=== PATIENT | female | born 1955 | race Caucasian/White ===

== ENCOUNTER 2019-08-27 06:00 | Outpatient (RCR) | payer OTHER, MEDICAID, SELFPAY | END 2019-09-26 00:01 | LOC: SPT 06:00 | PROVIDERS: Family Provider Internal Medicine; Visit Provider Internal Medicine | DX: M54.5 Low back pain (principal); R29.898 Other symptoms and signs involving the musculoskeletal system | CPT/HCPCS: 97110 ×9 ==

== ENCOUNTER 2019-09-27 08:31 | Outpatient (RCR) | payer OTHER, MEDICAID, SELFPAY | END 2019-10-02 23:00 | disposition home or self-care (01) | LOC: SPT 08:31 | PROVIDERS: Family Provider Internal Medicine; PCP Internal Medicine; Visit Provider Internal Medicine | DX: M54.5 Low back pain (principal); R29.898 Other symptoms and signs involving the musculoskeletal system | CPT/HCPCS: 97110 ==

== ENCOUNTER 2020-03-13 10:01 | Outpatient (CLI) | payer OTHER, MEDICAID, SELFPAY ==
[2020-03-13 10:43] LABS: Basophils % 0.8 %; Eosinophils # 0.1 10^3/uL (0.0-0.8); Eosinophils % 1.8 %; Hematocrit 40.7 % (37.0-47.0); Hemoglobin 13.7 g/dL (11.5-15.3); Lymphocytes # 1.2 10^3/uL (0.8-4.8); Lymphocytes % 30.3 %; Mean Corpuscular HGB Conc 33.7 g/dL (30.0-36.0); Mean Corpuscular Hemoglobin 32.9 pg (28.0-34.0); Mean Corpuscular Volume 97.6 fL (81-99); Mean Platelet Volume 10.8 fL (7.4-10.4); Monocytes # 0.3 10^3/uL (0.2-0.9); Monocytes % 7.4 %; Neutrophils # 2.3 10^3/uL (1.8-7.7); Neutrophils % 59.4 %; Nucleated Red Blood Cells % 0 %; Platelet Count 221 10^3/cmm (130-400); Red Blood Count 4.17 10^6/uL (4.1-5.3); Red Cell Distribution Width 11.7 % (12.1-15.1); White Blood Count 3.8 10^3/uL (4.0-10.0)
[2020-03-13 11:05] LABS: Carcinoembryonic Antigen 3.3 ng/mL (0.0-4.7)
[2020-03-13 11:13] LABS: Slide Review Slide Review Perform
[2020-03-13 11:16] LABS: Alanine Aminotransferase 15 U/L (0-33); Albumin Level 3.9 g/dL (3.5-5.2); Alkaline Phosphatase 81 IU/L (35-105); Anion Gap 15.3 (5-19); Blood Urea Nitrogen 10 mg/dL (8-23); Calcium 9.2 mg/dL (8.5-10.5); Carbon Dioxide 24 mmol/L (22-29); Chloride 102 mmol/L (98-107); Glomerular Filtration Rate 84.8 mL/min (90-130); Glucose 100 mg/dL (65-115); Osmolality Calculated 280 mOsm/kg (285-295); Potassium 4.3 mmol/L (3.5-5.1); Sodium 137 mmol/L (136-145); Total Bilirubin 0.6 mg/dL (0.15-1.2); Total Protein 6.9 g/dL (6.6-8.7)
[2020-03-13 11:30] LABS: Aspartate Amino Transferase 28 U/L (0-32)
--- NOTE | 2020-03-17 13:51 | ONC FU_ITS ---
Dr. Navarrete Patient Follow-Up Note Patient: Delisa Dos Santos Unit #: [id number]: 1955 Dicatated By: Rodriguez Navarrete M.D.Date of Visit:Mar 13, 2020 Onc Med Follow-up/Prog Note Chief Complaint: Colon cancer. History of Present Illness: This is a 64 year-old woman with low-grade invasive adenocarcinoma of the cecum, stage IIIC (T3, N2b, M0). She underwent right hemicolectomy in April of 2011. Pathology showed a T3 primary tumor with involvement in 9 of [address] scan at that time showed a lesion in the left lobe of the liver which was felt to be suspicious for possible metastasis, but that lesion did not show up on a PET/CT scan. She was given adjuvant chemotherapy with modified FOLFOX. As of October 2011 she had completed 4 biweekly cycles of treatment. Treatment was stopped at that point because of neurotoxicity with the oxaliplatin, which persisted even with dose reductions. She has remained on observation since then. On her surveillance CT scans the abnormality in the medial segment of the left lobe of the liver was felt to be consistent with a benign focal area of decreased enhancement. During subsequent follow-up she continued to have some neuropathy symptoms, but there was no evidence of recurrence of the colon cancer. Her other medical illnesses include hyperlipidemia and migraine headaches. She has degenerative disease of the spine with chronic back pain. She has had significant visual loss due to glaucoma. Her surveillance colonoscopy in March 2016 showed adenomatous appearing polyps in the mid and distal sigmoid colon, both removed endoscopically. Pathology on the mid sigmoid lesion show tubular adenoma. The distal sigmoid lesion was a hyperplastic polyp. She has a nonsmoker. She is seen for a scheduled visit. She has been feeling okay. Her energy is fair. ECOG score is 1. She says her appetite is not that good. Her weight is down about 5 pounds. She does not have fever. She does have hot flashes and sweating. Her main complaint is that her right shoulder is been hurting for couple of weeks, enough that she has difficulty lifting her arm. She did get an injection, which has not helped very much. She does not complain of shortness of breath, cough, or chest pain. She has no GI or complaints. She also has back pain, which is chronic. She has been having some headaches for the past 3 to 4 weeks. She continues to have neuropathy pain in her hands and in her legs and feet. Medications: Aspirin 1 (81 mg) Tablet Oral daily, Ativan 1 (1 mg) Tablet Oral 6x/d PRN, B-6 1 (100 mg) Tablet Oral daily, Flexeril 1 (10 mg) Tablet Oral daily, Lomotil Tablet Oral PRN, Multivitamins 1 Capsule Oral daily, Nucynta 1 (50 mg) Tablet Oral four times a day PRN, Pravastatin Sodium 1 (20 mg) Tablet Oral at bedtime, Prochlorperazine Maleate 1 (10 mg) Tablet Oral 6x/d PRN, Soma 250 (250 mg) Tablet Oral t.i.d. PRN, SUMAtriptan Succinate 1 (100 mg) Tablet Oral four times a day PRN, Vitamin D 1 (400 Units) Capsule Oral b.i.d., Zolpidem Tartrate 1 (5 mg) Tablet Oral at bedtime PRN, ZyrTEC Allergy 1 (10 mg) Capsule Oral daily Allergies: No Known Allergies. Review of Systems: Constitutional - Her energy is fair. She is able to do light house work. Her appetite is okay and her weight is down about 6 pounds from last visit. No fevers. She continues to have hot flashes and night sweats. ECOG score is 1, ENMT - No sinus congestion/drainage. No mouth sores. No sore throat or difficulty swallowing, Hematologic/Lymphatic - She bruises easily, Respiratory - No shortness of breath. No cough. No pleuritic pain or hemoptysis, Cardiovascular - No angina pain. No palpitations, Gastrointestinal - No nausea or vomiting. No heartburn or acid reflux. No diarrhea or constipation. No blood in the stool or black stools, Genitourinary (F) - No dysuria or hematuria. No urinary frequency. No urgency or incontinence, Musculoskeletal - She is having right shoulder pain, Integumentary - No skin complications, Neurologic - She is having headaches, this is occuring every 3-4 weeks.No dizziness. She has some mild neuropathy in her hands and feet. No other focal neurologic symptoms, Psychiatric - No anxiety or depression. She does not sleep well. Vital Signs: Performed on Mar 13, 2020 11:35 Height - 62.00 in Weight - 133.8 lbs (LOW) BSA - 1.61 sq.m BMI - 24.47 Temperature - 98.2 F (LOW) Pulse - 87 /min Respiration - 18 /min BP - 111/63 mm(hg) O2 Sat - 99 % Pain - 5 Physical Examination: Constitutional - She looks good generally, Eyes - Sclerae nonicteric. Conjunctivae clear, ENMT - No lesions noted in the oral cavity, Hematologic/Lymphatic - No cervical, clavicular, or axillary adenopathy, Respiratory - Lungs are clear with good air movement bilaterally, Cardiovascular - Heart rhythm is regular. There is no murmur, gallop, or rub noted, Abdomen - Soft. Liver and spleen are not enlarged. There is no abdominal mass or ascites noted and there is no inguinal adenopathy, Extremities - No edema, Neurologic - No focal neurologic deficits noted. Lab/Imaging: Test performed on Mar 13, 2020 10:14 Sodium 137 mmol/L Potassium 4.3 mmol/L Chloride 102 mmol/L CO2 24 mmol/L Anion Gap 15.3 BUN 10 mg/dL Creatinine 0.7 mg/dL Cr Clearance (Est) 79.84 mL/min eGFR 84.8 mL/min Glucose 100 mg/dL Calcium 9.2 mg/dL Protein, Total 6.9 g/dL Albumin 3.9 g/dL Globulin 3.0 g/dL Bilirubin, Total 0.6 mg/dL ALT (SGPT) 15 U/L AST (SGOT) 28 U/L Alkaline Phosphatase 81 IU/L WBC 3.8 10 3/uL RBC 4.17 10 6/uL HGB 13.7 g/dL HCT 40.7 % MCV 97.6 fL MCH 32.9 pg MCHC 33.7 g/dL RDW 11.7 % Platelet Count 221 10 3/cmm MPV 10.8 fL Neutrophils 2.3 10 3/uL Lymphocytes 1.2 10 3/uL Monocytes 0.3 10 3/uL Eosinophils 0.1 10 3/uL Basophils 0.0 10 3/uL Neutrophil % 59.4 % Lymphocyte % 30.3 % Monocyte % 7.4 % Eosinophil % 1.8 % Basophils % 0.8 % NRBC % 0 % CBC Slide Review Slide Review Perform CEA 3.3 ng/mL Impression: 1. Patient with low-grade invasive adenocarcinoma of the cecum, stage IIIC. She underwent right hemicolectomy in April 2011 2. She was given adjuvant chemotherapy with 8 cycles of modified FOLFOX, completed in October 2011. Treatment was stopped at that point due to neurotoxicity. 3. She has since then remained on observation/expectant management. She had some chronic fatigue following the chemotherapy and she also had persistent chemotherapy-related neuropathy symptoms, including chronic neuropathic pain. She also has had some chronic back pain. Her pain has been managed adequately with Nucynta, which she has tolerated well. Recently she has had some new pain in her right shoulder. The symptoms appear consistent with bursitis or capsulitis, though she had no symptomatic improvement with the recent injection. She otherwise appears stable clinically. Thus far there has been no evidence of recurrence of the colon cancer. Plan: She remains on observationexpectant management for the colon cancer. She will continue Nucynta for her neuropathy pain. I will see her again in one year. She will be due for surveillance colonoscopy in 2020. Signed By: Rodriguez Navarrete M.D. <<Signature on File>>
== END 2020-03-13 10:02 | disposition home or self-care (01) ==
LOC: ONCMED 10:04
PROVIDERS: PCP Internal Medicine; Visit Provider Internal Medicine Medical Oncology
DX: Z08 Encounter for follow-up examination after completed treatment for malignant neoplasm (principal); Z85.038 Personal history of other malignant neoplasm of large intestine; G62.0 Drug-induced polyneuropathy; T45.1X5D Adverse effect of antineoplastic and immunosuppressive drugs, subsequent encounter; M25.511 Pain in right shoulder; Z90.49 Acquired absence of other specified parts of digestive tract; Z92.21 Personal history of antineoplastic chemotherapy
CPT/HCPCS: 36415; 80053; 82378; 85025; G0463

== ENCOUNTER 2020-07-02 08:22 | Outpatient (RCR) | payer OTHER, MEDICAID, SELFPAY | END 2020-07-27 23:59 | disposition home or self-care (01) | LOC: SPT 08:22 | PROVIDERS: PCP Internal Medicine; Referring Provider Orthopaedic Surgery; Visit Provider Orthopaedic Surgery | DX: Z47.89 Encounter for other orthopedic aftercare (principal) | CPT/HCPCS: 97110; 97161 ==

== ENCOUNTER 2020-07-12 08:52 | Outpatient (CLI) | payer OTHER, MEDICAID, SELFPAY ==
--- NOTE | 2020-07-12 08:57 | MM_ITS ---
WS: [id number] Bilateral screening digital mammogram, 07/12/2020 Clinical Data: SCREENING Comparison: 07/10/2019, 07/01/2018, 05/10/2017, 04/13/2016, 04/09/2015, 04/03/2014. Findings: The breast parenchymal pattern shows fibroglandular tissue No spiculated masses or clustered calcific ations are seen. There are no secondary signs of carcinoma. MM/[place] [id number] Impression: 1. Negative bilateral mammogram unchanged. 2. Recommend annual screening mammograms. BIRADS: 1-Negative FOLLOW UP: 1 Year Follow-up The CAD loom checker was used.
== END 2020-07-12 08:53 | disposition home or self-care (01) ==
PROVIDERS: PCP Internal Medicine; Visit Provider Internal Medicine Medical Oncology
DX: Z12.31 Encounter for screening mammogram for malignant neoplasm of breast (principal)
CPT/HCPCS: 77067

== ENCOUNTER 2020-07-28 06:00 | Outpatient (RCR) | payer OTHER, MEDICAID, SELFPAY | END 2020-08-26 23:59 | disposition home or self-care (01) | LOC: SPT 06:00 | PROVIDERS: PCP Internal Medicine; Visit Provider Orthopaedic Surgery | DX: Z47.89 Encounter for other orthopedic aftercare (principal) | CPT/HCPCS: 97110 ==

== ENCOUNTER 2020-08-27 06:00 | Outpatient (RCR) | payer OTHER, MEDICAID, SELFPAY | END 2020-09-26 23:59 | disposition home or self-care (01) | LOC: SPT 06:00 | PROVIDERS: PCP Internal Medicine; Visit Provider Orthopaedic Surgery | DX: Z47.89 Encounter for other orthopedic aftercare (principal) | CPT/HCPCS: 97110 ==

== ENCOUNTER → 2020-12-02 11:09 | Outpatient (BNVA) | payer OTHER, MEDICAID, SELFPAY | PROVIDERS: PCP Internal Medicine; Visit Provider Obstetrics & Gynecology | DX: Z12.4 Encounter for screening for malignant neoplasm of cervix (principal) | CPT/HCPCS: 88175 ==

== ENCOUNTER 2021-03-13 08:59 | Outpatient (CLI) | payer OTHER, MEDICAID, SELFPAY ==
[2021-03-13 09:49] LABS: Basophils % 0.9 %; Eosinophils # 0.1 10^3/uL (0.0-0.8); Hematocrit 39.4 % (37.0-47.0); Hemoglobin 13.2 g/dL (11.5-15.3); Lymphocytes # 2.1 10^3/uL (0.8-4.8); Lymphocytes % 46.8 %; Mean Corpuscular HGB Conc 33.5 g/dL (30.0-36.0); Mean Corpuscular Hemoglobin 32.7 pg (28.0-34.0); Mean Corpuscular Volume 97.5 fL (81-99); Mean Platelet Volume 9.7 fL (7.4-10.4); Monocytes # 0.5 10^3/uL (0.2-0.9); Monocytes % 10.8 %; Neutrophils # 1.75 10^3/uL (1.8-7.7); Neutrophils % 39.5 %; Nucleated Red Blood Cells % 0 %; Platelet Count 253 10^3/cmm (130-400); Red Blood Count 4.04 10^6/uL (4.1-5.3); Red Cell Distribution Width 11.8 % (12.1-15.1); White Blood Count 4.4 10^3/uL (4.0-10.0)
[2021-03-13 10:23] LABS: Carcinoembryonic Antigen 3.1 ng/mL (0.0-4.7)
[2021-03-13 10:34] LABS: Alanine Aminotransferase 12 U/L (0-33); Albumin Level 3.8 g/dL (3.5-5.2); Alkaline Phosphatase 95 IU/L (35-105); Aspartate Amino Transferase 22 U/L (0-32); Blood Urea Nitrogen 12 mg/dL (8-23); Calcium 8.6 mg/dL (8.5-10.5); Carbon Dioxide 26 mmol/L (22-29); Chloride 103 mmol/L (98-107); Globulin 2.6 g/dL (1.3-4.6); Glomerular Filtration Rate 72.4 mL/min (90-130); Glucose 90 mg/dL (65-115); Osmolality Calculated 283 mOsm/kg (285-295); Sodium 137 mmol/L (136-145); Total Bilirubin 0.5 mg/dL (0.15-1.2); Total Protein 6.4 g/dL (6.6-8.7)
--- NOTE | 2021-03-16 14:59 | ONC FU_ITS ---
Dr. Navarrete Patient Follow-Up Note Patient: Delisa Dos Santos Unit #: [id number]: 1955 Dicatated By: Rodriguez Navarrete M.D.Date of Visit:Mar 13, 2021 Onc Med Follow-up/Prog Note Chief Complaint: Colon cancer. History of Present Illness: This is a 65 year-old woman with low-grade invasive adenocarcinoma of the cecum, stage IIIC (T3, N2b, M0). She underwent right hemicolectomy in April of 2011. Pathology showed a T3 primary tumor with involvement in 9 of [address] scan at that time showed a lesion in the left lobe of the liver which was felt to be suspicious for possible metastasis, but that lesion did not show up on a PET/CT scan. She was given adjuvant chemotherapy with modified FOLFOX. As of October 2011 she had completed 4 biweekly cycles of treatment. Treatment was stopped at that point because of neurotoxicity with the oxaliplatin, which persisted even with dose reductions. She has remained on observation since then. On her surveillance CT scans the abnormality in the medial segment of the left lobe of the liver was felt to be consistent with a benign focal area of decreased enhancement. During subsequent follow-up she continued to have some neuropathy symptoms, but there was no evidence of recurrence of the colon cancer. Her other medical illnesses include hyperlipidemia and migraine headaches. She has degenerative disease of the spine with chronic back pain. She has had significant visual loss due to glaucoma. Her surveillance colonoscopy in March 2016 showed adenomatous appearing polyps in the mid and distal sigmoid colon, both removed endoscopically. Pathology on the mid sigmoid lesion show tubular adenoma. The distal sigmoid lesion was a hyperplastic polyp. She has a nonsmoker. She is seen for a scheduled visit. She has been feeling pretty good generally. Her energy level is somewhat variable, but she has normal activity. ECOG score is 0. She does not have much appetite, but her weight is stable. She has not had fever. She does have hot flashes and sweating at night. She does not complain of shortness of breath, cough, or chest pain. She has no GI/ complaints other than some mild constipation. She has a little stiffness in her joints and she continues to have back pain, though it is adequately managed with her medication. Her headaches have slacked up. She still has neuropathy pain in her hands and feet. Medications: Aspirin 1 (81 mg) Tablet Oral daily, Ativan 1 (1 mg) Tablet Oral 6x/d PRN, B-6 1 (100 mg) Tablet Oral daily, Flexeril 1 (10 mg) Tablet Oral daily, Lomotil Tablet Oral PRN, Multivitamins 1 Capsule Oral daily, Nucynta 1 (50 mg) Tablet Oral four times a day PRN, Pravastatin Sodium 1 (20 mg) Tablet Oral at bedtime, Prochlorperazine Maleate 1 (10 mg) Tablet Oral 6x/d PRN, Soma 250 (250 mg) Tablet Oral t.i.d. PRN, SUMAtriptan Succinate 1 (100 mg) Tablet Oral four times a day PRN, Vitamin D 1 (400 Units) Capsule Oral b.i.d., Zolpidem Tartrate 1 (5 mg) Tablet Oral at bedtime PRN, ZyrTEC Allergy 1 (10 mg) Capsule Oral daily Allergies: No Known Allergies. Vital Signs: Performed on Mar 13, 2021 11:59 Height - 62.00 in Weight - 133.8 lbs BSA - 1.61 sq.m BMI - 24.47 Temperature - 97.1 F (LOW) Pulse - 89 /min Respiration - 18 /min BP - 114/75 mm(hg) O2 Sat - 97 % Pain - 0 Fatigue - 0 Physical Examination: Constitutional - She looks good generally, Eyes - Sclerae nonicteric. Conjunctivae clear, ENMT - No lesions noted in the oral cavity, Hematologic/Lymphatic - No cervical, clavicular, or axillary adenopathy, Respiratory - Lungs are clear with good air movement bilaterally, Cardiovascular - Heart rhythm is regular. There is no murmur, gallop, or rub noted, Abdomen - Soft. Liver and spleen are not enlarged. There is no abdominal mass or ascites noted and there is no inguinal adenopathy, Extremities - No edema, Neurologic - No focal neurologic deficits noted. Lab/Imaging: Test performed on Mar 13, 2021 09:23 Sodium 137 mmol/L Potassium 4.0 mmol/L Chloride 103 mmol/L CO2 26 mmol/L Anion Gap 12.0 BUN 12 mg/dL Creatinine 0.8 mg/dL Cr Clearance (Est) 68.9600 mL/min eGFR 72.4 mL/min Glucose 90 mg/dL Osmolality - Calculated 283 mOsm/kg Calcium 8.6 mg/dL Protein, Total 6.4 g/dL Albumin 3.8 g/dL Globulin 2.6 g/dL Bilirubin, Total 0.5 mg/dL ALT (SGPT) 12 U/L AST (SGOT) 22 U/L Alkaline Phosphatase 95 IU/L WBC 4.4 10 3/uL RBC 4.04 10 6/uL HGB 13.2 g/dL HCT 39.4 % MCV 97.5 fL MCH 32.7 pg MCHC 33.5 g/dL RDW 11.8 % Platelet Count 253 10 3/cmm MPV 9.7 fL Neutrophils 1.75 10 3/uL Lymphocytes 2.1 10 3/uL Monocytes 0.5 10 3/uL Eosinophils 0.1 10 3/uL Basophils 0.0 10 3/uL Neutrophil % 39.5 % Lymphocyte % 46.8 % Monocyte % 10.8 % Eosinophil % 2.0 % Basophils % 0.9 % NRBC % 0 % CEA 3.1 ng/mL Problem List: 1. Low-grade invasive adenocarcinoma of the cecum, stage IIIC. She underwent right hemicolectomy in April 2011. 2. She had some chronic fatigue following adjuvant chemotherapy, and she also had persistent chemotherapy-related neuropathy symptoms, including chronic neuropathic pain. 3. Degenerative disease of the spine with chronic back pain. Problems Addressed with this Encounter and Plan: 1. Patient with low-grade invasive adenocarcinoma of the cecum, stage IIIC. She underwent right hemicolectomy in April 2011. She was given adjuvant chemotherapy with 8 cycles of modified FOLFOX, completed in October 2011. Treatment was stopped at that point due to neurotoxicity. She was then followed expectantly. During follow-up her overall clinical status has remained stable. Thus far there has been no evidence of recurrence of the colon cancer. Her most recent surveillance colonoscopy was in March 2016, and that is due to be repeated. I will have that scheduled with Dr. Joshi. As she is close to 10 years out from her surgery, she will now continue her regular follow-up with Dr. Srinivasan, and I will plan to see her again only as needed. 2. She has degenerative disease of the spine with some chronic back pain and she also has had chronic fatigue and neuropathy pain following her adjuvant chemotherapy. The pain has been managed adequately with Nucynta 50 mg 4 times daily. Signed By: Rodriguez Navarrete M.D. <<Signature on File>>
== END 2021-03-13 09:00 | disposition home or self-care (01) ==
LOC: ONCMED 09:03
PROVIDERS: PCP Internal Medicine; Visit Provider Internal Medicine Medical Oncology
DX: Z08 Encounter for follow-up examination after completed treatment for malignant neoplasm (principal); Z85.038 Personal history of other malignant neoplasm of large intestine; R53.82 Chronic fatigue, unspecified; G62.0 Drug-induced polyneuropathy; T45.1X5A Adverse effect of antineoplastic and immunosuppressive drugs, initial encounter; M19.90 Unspecified osteoarthritis, unspecified site; M54.5 Low back pain; G89.29 Other chronic pain; Z79.899 Other long term (current) drug therapy; Z92.21 Personal history of antineoplastic chemotherapy
CPT/HCPCS: 80053; 82378; 85025; 99214

== ENCOUNTER 2021-09-12 10:46 | Outpatient (CLI) | payer OTHER, MEDICAID, SELFPAY ==
--- NOTE | 2021-09-12 10:59 | MM_ITS ---
WS: [id number] SCREENING DIGITAL MAMMOGRAM WITH CAD HISTORY: SCREENING COMPARISON: 07/12/2020, 07/10/2019 Bilateral CC and MLO views submitted. Computer aided detection analyzed. Breast composition: There are scattered areas of fibroglandular density. There is a new calcification with associated soft tissue mass in the LEFT breast posteriorly near the 2-3 o'clock axis. This will need further evaluation. Benign calcifications in the RIGHT breast. MM/[place] [id number] IMPRESSION: BI-RADS: 0-Incomplete: Need additional imaging evaluation FOLLOW UP: Need Additional Imaging LEFT breast: Spot compression views (CC and MLO). Exaggerated lateral LEFT CC. True ML. Ultrasound to follow if abnormality persists.
== END 2021-09-12 10:47 | disposition home or self-care (01) ==
LOC: RADSHAW 10:55
PROVIDERS: PCP Internal Medicine; Visit Provider Internal Medicine
DX: Z12.31 Encounter for screening mammogram for malignant neoplasm of breast (principal)
CPT/HCPCS: 77067

== ENCOUNTER 2021-10-03 10:12 | Outpatient (CLI) | payer OTHER, MEDICAID, SELFPAY ==
--- NOTE | 2021-10-03 10:28 | US_ITS ---
WS: [email or web address] ADDITIONAL VIEWS LEFT MAMMOGRAM LEFT BREAST ULTRASOUND HISTORY: NEW CALCS COMPARISON: 09/12/2021, 07/12/2020 LEFT MAMMOGRAM: Spot compression views and true ML. Coarse calcification in the posterior LEFT breast near 2-3 o'clock. Questionable surrounding increase d soft tissue mass. This will be further evaluated by ultrasound. This does appear to be a benign-lashae earing calcification. LEFT BREAST ULTRASOUND 2-D and color Doppler imaging submitted. Hypoechoic mass with a central echogenic foci. The central echogenic focus size is probably the calc ification. This nodule measures 5 x 5 x 4 mm. Mass is at 2:00, 3 cm from the nipple. This does corres pond in size and location to the mammographic abnormality. US/US breast LT limited* [id number] IMPRESSION: BI-RADS: 4-Suspicious Finding-Biopsy Should Be Considered FOLLOW UP: Biopsy Recommended Ultrasound-guided biopsy recommended of the LEFT breast mass at 2:00. Notified Rodriguez Srinivasan DO at 10/03/2021 11:02 AM. Not available at this t radha. Message was left with the answering service.
== END 2021-10-03 10:13 | disposition home or self-care (01) ==
PROVIDERS: PCP Internal Medicine; Visit Provider Internal Medicine
DX: R92.1 Mammographic calcification found on diagnostic imaging of breast (principal); N63.21 Unspecified lump in the left breast, upper outer quadrant
CPT/HCPCS: 76642; 77065

== ENCOUNTER 2021-10-31 09:25 | Outpatient (CLI) | payer OTHER, MEDICAID, SELFPAY ==
--- NOTE | 2021-10-31 | US_ITS ---
WS: [email or web address] ULTRASOUND-GUIDED LEFT BREAST BIOPSY HISTORY: LEFT BREAST BIOPSY, mass at 2:00. COMPARISON: 10/03/2021, 09/12/2021 Procedure, risks and complications are explained to the patient. Medications are reviewed. Consent is obtained. The mass in the LEFT breast is localized with ultrasound. Skin is cleansed with ChloraPrep and anesth etized with 1% buffered lidocaine. Small dermatome is made. Under sterile conditions mass is biopsied with a 14-gauge Achieve needle. Multiple core biopsies are performed. Material placed in formalin an d sent to pathology for review. No complications encountered. Breast tissue marker ([employer] ultrasound enhanced ribbon): Single. Patient left the radiology suite with no complications. Patient is instructed [place] [facility] [facility] with any concerns. US/[place] [id number] IMPRESSION: 1. Uncomplicated core needle biopsy LEFT breast mass at 2:00. PATHOLOGY: Benign breast tissue with fibroadenomatoid change. Focal microcalcif ication. No malignancy. RECOMMENDATION: Diagnostic LEFT mammogram follow-up 6 months. Ultrasound may al so be necessary.
== END 2021-10-31 09:26 | disposition home or self-care (01) ==
LOC: RAD 09:28
PROVIDERS: PCP Internal Medicine; Visit Provider Internal Medicine
DX: N63.21 Unspecified lump in the left breast, upper outer quadrant (principal); R92.1 Mammographic calcification found on diagnostic imaging of breast
CPT/HCPCS: 19083; 88305

== ENCOUNTER 2022-03-19 09:46 | Outpatient (CLI) | payer OTHER, MEDICAID, SELFPAY ==
--- NOTE | 2022-03-19 09:57 | XR_ITS ---
WS: [email or web address] Exam: XR lumbar spine f/e only [id number] Date/Time of Exam: 03/19/2022 9:57 AM Reason For Exam: M54.16 - Radiculopathy, lumbar region There is degenerative anterolisthesis of L4 on L5 with about 5 mm forward movement of L4. This does n ot change significantly in flexion or extension. No other significant spondylolisthesis. Facet DJD at all levels but most marked at L4-5 and L5-S1. Mild degenerative disc narrowing at L4-5 and L5-S1. XR/XR lumbar spine f/e only [id number] IMPRESSION: 1. Degenerative anterolisthesis of L4 on L5 with about 5 mm forward movement of L4. This shows little change between flexion and extension. 2. Degenerative changes as detailed above.
--- NOTE | 2022-03-19 10:15 | MR_ITS ---
WS: [email or web address] MRI LUMBAR SPINE NONCONTRAST HISTORY: M54.16 - Radiculopathy, lumbar region, right-sided radiculopathy. COMPARISON: 09/16/2015 TECHNIQUE: Sagittal and axial multisequence imaging is submitted. Increase in thoracic kyphosis. T6 hemangioma. Mild RIGHT curvature lumbar spine. L4 anterolisthesis by 3 mm. Mild reactive marrow edema along the e ndplates posteriorly of L4 and L5. No fractures. Mild disc space narrowing and desiccation throughout the lumbar spine. Conus terminates normally at L1-2 disc level. L1-L2: Mild facet arthritis. No stenosis. L2-L3: Mild diffuse annular disc bulge with a central disc protrusion extending to the LEFT. Moderate ligamentum flavum hypertrophy and facet arthritis. Narrowing of the subarticular recesses, LEFT grea ter than RIGHT. More significant encroachment upon the traversing LEFT L3 nerve root. There is also m ild foraminal stenosis. L3-L4: Mild diffuse annular disc bulging with marked ligamentum flavum hypertrophy and facet arthriti s. Greatest degenerative change involving the LEFT facet. Disc encroachment upon the thecal sac and s ubarticular recesses. Mild central stenosis with mild to moderate bilateral subarticular recess and f oraminal stenosis. There is disc and facet contact on the traversing L4 nerve roots, LEFT greater chantelle n RIGHT. L4-L5: Diffuse annular disc bulge with a central disc protrusion. Marked ligamentum flavum and facet arthritis. Increased fluid in the LEFT facet joint. Disc and osteophyte encroachment into the subarti cular recesses. Mild to moderate central with bilateral subarticular recess stenosis and mild foramin al narrowing. Mild disc contact on the traversing L5 nerve roots, greatest on the RIGHT. L5-S1: Mild annular disc bulge. Focal central disc protrusion and additional disc osteophyte extendin g into the RIGHT foramen. Mild RIGHT subarticular recess and foraminal stenosis. Mild encroachment up on the RIGHT L5 and S1 nerve roots. MR/MR lumbar spine wo con* [id number] IMPRESSION: 1. Mild RIGHT curvature the lumbar spine. New since the prior study. 2. Mild progression of degenerative disc and facet disease since the prior rambo dy from 2014. 3. Central to LEFT paracentral disc protrusion at L2-3 mildly contacting the t raversing L3 nerve root. Mild narrowing of the subarticular recesses and forame n and central canal at L2-3. 4. Mild central stenosis with mild to moderate bilateral subarticular recess and foraminal stenosis at L3-4, LEFT greater than RIGHT with most significant c ontact on the traversing L4 nerve roots. 5. Central disc protrusion at L4-5. Mild to moderate central, bilateral subart icular recess and mild foraminal stenosis at L4-5. Mild disc contact on the L5 nerve roots. 6. Focal central disc protrusion at L5-S1 with additional disc osteophyte comp sami in the RIGHT foramen. Disc osteophyte encroachment upon the RIGHT L5 and S1 nerve roots.
== END 2022-03-19 09:47 | disposition home or self-care (01) ==
PROVIDERS: PCP Internal Medicine; Visit Provider Anesthesiology Pain Medicine
DX: M54.16 Radiculopathy, lumbar region (principal)
CPT/HCPCS: 72120; 72148

== ENCOUNTER 2022-03-25 14:17 | Oncology outpatient (recurring) (ONCR) | payer OTHER, MEDICAID, SELFPAY | END 2022-03-26 23:59 | disposition home or self-care (01) | LOC: ONCMED 14:17 | PROVIDERS: PCP Internal Medicine; Visit Provider Internal Medicine Medical Oncology | DX: Z53.9 Procedure and treatment not carried out, unspecified reason (principal) ==

== ENCOUNTER 2022-05-21 15:07 | Outpatient (CLI) | payer OTHER, MEDICAID, SELFPAY ==
--- NOTE | 2022-05-21 15:12 | MM_ITS ---
WS: [email or web address] DIAGNOSTIC LEFT DIGITAL TOMOSYNTHESIS MAMMOGRAPHY WITH CAD. LEFT breast ultrasound, limited HISTORY: 6 MO F/U POST BIOPSY COMPARISON: 10/31/2021, 10/03/1999 2200 09/12/2021 Technique: CC, MLO and ML views. Breast composition: There are scattered areas of fibroglandular density. Biopsy clip and very minima l residual soft tissue nodules noted in the middle depth at 2:00 LEFT breast. Benign calcification wi thin the nodule. LEFT breast ultrasound, limited. No change in the well-circumscribed soft tissue nodule at 2:00, 3 cm from the nipple in the LEFT [address]. Biopsy clip is evident. This small mass measures 6 x 5 x 4 mm. This was benign on recent biopsy. MM/[place] [id number] IMPRESSION: BI-RADS: 2-Benign FOLLOW UP: See Report Return to annual screening mammography.
== END 2022-05-21 15:08 | disposition home or self-care (01) ==
LOC: RAD 15:08
PROVIDERS: PCP Internal Medicine; Visit Provider Internal Medicine
DX: Z12.31 Encounter for screening mammogram for malignant neoplasm of breast (principal)
CPT/HCPCS: 76642; 77061

== ENCOUNTER 2022-11-23 09:46 | Outpatient (CLI) | payer OTHER, MEDICAID, SELFPAY ==
--- NOTE | 2022-11-23 10:01 | MM_ITS ---
WS: [email or web address] BILATERAL SCREENING DIGITAL TOMOSYNTHESIS MAMMOGRAM WITH CAD HISTORY: SCREENING COMPARISON: 05/21/2022, 07/12/2020 Bilateral CC and MLO views with tomosynthesis and synthetic mammography submitted. Computer aided det ection analyzed. Breast composition: There are scattered areas of fibroglandular density. No suspicious masses, microc alcifications or architectural distortion. Biopsy clip in the upper outer quadrant of the LEFT breast . No interval change or increase in size of the soft tissue residual mass. Benign calcifications. MM/[place] [id number] IMPRESSION: BI-RADS: 2-Benign FOLLOW UP: 1 Year Follow-up
== END 2022-11-23 09:47 | disposition home or self-care (01) ==
PROVIDERS: PCP Internal Medicine; Visit Provider Internal Medicine
DX: Z12.31 Encounter for screening mammogram for malignant neoplasm of breast (principal)
CPT/HCPCS: 77063; 77067

== ENCOUNTER 2023-03-24 13:09 | Oncology outpatient (recurring) (ONCR) | payer OTHER, MEDICAID, SELFPAY | END 2023-03-26 23:59 | disposition home or self-care (01) | PROVIDERS: PCP Internal Medicine; Visit Provider Nurse Practitioner | DX: Z53.9 Procedure and treatment not carried out, unspecified reason (principal) ==

== ENCOUNTER 2023-11-26 06:00 | Outpatient (CLI) | payer OTHER, MEDICAID, SELFPAY | END 2023-11-26 23:59 | disposition home or self-care (01) | LOC: SOT 11-29 08:28 | PROVIDERS: Visit Provider Orthopaedic Surgery | DX: Z46.89 Encounter for fitting and adjustment of other specified devices (principal); S69.91XD Unspecified injury of right wrist, hand and finger(s), subsequent encounter; X58.XXXD Exposure to other specified factors, subsequent encounter | CPT/HCPCS: L3984 ==

== ENCOUNTER → 2023-11-26 09:44 | Outpatient (BNVA) | payer OTHER, MEDICAID, SELFPAY | PROVIDERS: PCP Internal Medicine; Visit Provider Orthopaedic Surgery | DX: S52.531D Colles' fracture of right radius, subsequent encounter for closed fracture with routine healing (principal); X58.XXXD Exposure to other specified factors, subsequent encounter | CPT/HCPCS: 73110 ==

== ENCOUNTER → 2023-12-09 07:44 | Outpatient (BNVA) | payer OTHER, MEDICAID, SELFPAY | PROVIDERS: PCP Internal Medicine; Visit Provider Orthopaedic Surgery | DX: S52.531D Colles' fracture of right radius, subsequent encounter for closed fracture with routine healing; X58.XXXD Exposure to other specified factors, subsequent encounter | CPT/HCPCS: 73110 ==

== ENCOUNTER → 2023-12-23 08:33 | Outpatient (BNVA) | payer OTHER, MEDICAID, SELFPAY | PROVIDERS: PCP Internal Medicine; Visit Provider Orthopaedic Surgery | DX: S52.531D Colles' fracture of right radius, subsequent encounter for closed fracture with routine healing (principal); X58.XXXD Exposure to other specified factors, subsequent encounter | CPT/HCPCS: 73110 ==

== ENCOUNTER 2024-01-06 08:09 | Outpatient (CLI) | payer OTHER, MEDICAID, SELFPAY ==
--- NOTE | 2024-01-06 08:12 | MM_ITS ---
WS: [email or web address] BILATERAL SCREENING DIGITAL TOMOSYNTHESIS MAMMOGRAM WITH CAD HISTORY: SCREENING COMPARISON: 11/23/2022, 05/21/2022 and 09/12/2021 Bilateral CC and MLO views with tomosynthesis and synthetic mammography submitted. Computer aided det ection analyzed. Breast composition: There are scattered areas of fibroglandular density. No suspicious masses, microc alcifications or architectural distortion. Prior biopsy clip upper outer quadrant LEFT breast. IMPRESSION: MM/[place] [id number] BI-RADS: 2-Benign FOLLOW UP: 1 Year Follow-up
== END 2024-01-06 08:10 | disposition home or self-care (01) ==
LOC: RAD 08:09
PROVIDERS: PCP Internal Medicine; Visit Provider Internal Medicine
DX: Z12.31 Encounter for screening mammogram for malignant neoplasm of breast (principal); R92.323 Mammographic fibroglandular density, bilateral breasts
CPT/HCPCS: 73110; 77063; 77067

== ENCOUNTER → 2024-02-03 10:41 | Outpatient (BNVA) | payer MEDICARE, OTHER, MEDICAID, SELFPAY | PROVIDERS: PCP Internal Medicine; Visit Provider Orthopaedic Surgery | DX: S52.531D Colles' fracture of right radius, subsequent encounter for closed fracture with routine healing (principal); X58.XXXD Exposure to other specified factors, subsequent encounter | CPT/HCPCS: 73110; 99213 ==

== ENCOUNTER → 2024-02-17 14:07 | Outpatient (BNVA) | payer MEDICARE, OTHER, MEDICAID, SELFPAY | PROVIDERS: PCP Internal Medicine; Visit Provider Podiatrist Foot & Ankle Surgery | DX: M21.611 Bunion of right foot; Q82.8 Other specified congenital malformations of skin | CPT/HCPCS: 73630; 99203 ==

== ENCOUNTER 2024-02-18 06:00 | Outpatient (RCR) | payer OTHER, MEDICARE, MEDICAID, SELFPAY | END 2024-02-25 23:59 | disposition home or self-care (01) | LOC: SOT 06:00 | PROVIDERS: PCP Internal Medicine; Visit Provider Orthopaedic Surgery | DX: S52.501D Unspecified fracture of the lower end of right radius, subsequent encounter for closed fracture with routine healing (principal); X58.XXXD Exposure to other specified factors, subsequent encounter | CPT/HCPCS: 97022; 97110; 97140; 97165; 97530 ==

== ENCOUNTER 2024-03-02 16:04 | Outpatient (RCR) | payer OTHER, MEDICARE, MEDICAID, SELFPAY | END 2024-03-26 23:59 | disposition home or self-care (01) | LOC: SOT 16:04 | PROVIDERS: PCP Internal Medicine; Visit Provider Orthopaedic Surgery | DX: S52.501D Unspecified fracture of the lower end of right radius, subsequent encounter for closed fracture with routine healing (principal); X58.XXXD Exposure to other specified factors, subsequent encounter | CPT/HCPCS: 97022; 97110; 97140 ==

== ENCOUNTER → 2025-01-08 12:48 | Outpatient (BNVA) | payer OTHER, MEDICARE, MEDICAID, SELFPAY | PROVIDERS: PCP Internal Medicine; Visit Provider Family Medicine | DX: E78.5 Hyperlipidemia, unspecified (principal); K21.9 Gastro-esophageal reflux disease without esophagitis; M54.9 Dorsalgia, unspecified; G89.29 Other chronic pain; G43.909 Migraine, unspecified, not intractable, without status migrainosus | CPT/HCPCS: 80053; 80061; 85025 ==

== ENCOUNTER 2025-01-09 12:15 | Outpatient (CLI) | payer OTHER, MEDICARE, MEDICAID, SELFPAY ==
--- NOTE | 2025-01-09 12:18 | MM_ITS ---
WS: [email or web address] BILATERAL 3D TOMOSYNTHESIS DIGITAL SCREENING MAMMOGRAPHY WITH CAD CLINICAL INFORMATION: SCREENING HISTORY: Screening mammogram. No current complaints. COMPARISON: 2023 TECHNIQUE: Bilateral CC and MLO views. FINDINGS: Scattered fibroglandular densities bilaterally. No suspicious focal mass, asymmetry, calcifications, or architectural distortion. No evidence of malignancy. Incidental punctate calcifications. Biopsy marker upper outer LEFT breast. MM/MM scr BI tomosynthesis [id number] IMPRESSION: DENSITY: There are scattered areas of fibroglandular density. BI-RADS: 2 - Benign. FOLLOW UP: 1 Year Follow-up Recommend return to annual screening mammography.
== END 2025-01-09 12:16 | disposition home or self-care (01) ==
PROVIDERS: PCP Family Medicine; Visit Provider Family Medicine
DX: Z12.31 Encounter for screening mammogram for malignant neoplasm of breast (principal); R92.323 Mammographic fibroglandular density, bilateral breasts; R92.1 Mammographic calcification found on diagnostic imaging of breast
CPT/HCPCS: 77063; 77067

== ENCOUNTER → 2025-07-02 09:19 | Outpatient (BNVA) | payer OTHER, MEDICARE, MEDICAID, SELFPAY | PROVIDERS: PCP Family Medicine; Visit Provider Family Medicine | DX: E78.00 Pure hypercholesterolemia, unspecified (principal); C18.2 Malignant neoplasm of ascending colon; Z85.038 Personal history of other malignant neoplasm of large intestine; E78.5 Hyperlipidemia, unspecified | CPT/HCPCS: 80053; 80061; 85025 ==

== ENCOUNTER 2025-08-08 09:40 | Outpatient (CLI) | payer OTHER, MEDICARE, MEDICAID, SELFPAY ==
--- NOTE | 2025-08-08 10:15 | MR_ITS ---
WS: [id number] MRI LUMBAR SPINE NONCONTRAST TECHNIQUE: Sagittal T1, T2 and STIR imaging. Axial T1 and T2 imaging. CLINICAL INFORMATION: worsening back pain.....eleectrical shock w cough/sneeze COMPARISON: 2021 MRI FINDINGS: Mild lumbar curve. No acute compression. Slight anterolisthesis L4 on L5. Disc bulging worse at L2-3 and L4-5 L1-L2: Mild facet arthropathy. L2-L3: Broad-based central disc protrusion with moderate central canal stenosis. Moderate facet arthropathy. Central canal stenosis appears slightly progressed. Impingement of the subarticular recess bilaterally. Mild bilateral foraminal narrowing. Moderate facet arthropathy. Facet arthropathy worse on the LEFT. L3-L4: Mild annular bulging. Moderate central canal stenosis progressed compared to previous. Impingement on the subarticular recess bilaterally. Moderate facet arthropathy. Mild LEFT greater than RIGHT foraminal narrowing. L4-L5: Grade 1 anterolisthesis. RIGHT paracentral protrusion impinges the traversing RIGHT L5 nerve root in the subarticular recess. Moderate central canal stenosis progressed compared to previous. Moderate facet arthropathy. Mild LEFT greater than RIGHT foraminal narrowing. Slight LEFT facet synovitis similar to previous. L5-S1: RIGHT eccentric disc osteophyte complex encroaches on the far exiting RIGHT L5 nerve root. Impingement on the traversing RIGHT S1 nerve root in the subarticular recess. LEFT foramen is patent. Mild facet arthropathy. Visualized pelvic bony structures: Normal. Paravertebral soft tissues: Normal. MR/MR lumbar spine wo con* [id number] IMPRESSION: 1. Mild lumbar curve. No acute compression. 2. Moderate central canal stenosis L2-3 L3-L4 and L4-L5 slightly progressed at all levels worse at L4-5. Recommend spine surgery consultation. 3. Slightly progressed grade 1 anterolisthesis L4 on L5. 4. Mild LEFT L3-L4, LEFT L4-L5, and RIGHT L5-S1 foraminal narrowing. 5. Disc bulge at L5-S1 impinges the traversing RIGHT S1 nerve root.
== END 2025-08-08 09:41 | disposition home or self-care (01) ==
LOC: RAD 09:41
PROVIDERS: PCP Family Medicine; Visit Provider Family Medicine
DX: M48.07 Spinal stenosis, lumbosacral region (principal); M47.816 Spondylosis without myelopathy or radiculopathy, lumbar region; M51.16 Intervertebral disc disorders with radiculopathy, lumbar region; M51.360 Other intervertebral disc degeneration, lumbar region with discogenic back pain only; M48.061 Spinal stenosis, lumbar region without neurogenic claudication; M43.16 Spondylolisthesis, lumbar region; M25.78 Osteophyte, vertebrae; M47.27 Other spondylosis with radiculopathy, lumbosacral region; M51.17 Intervertebral disc disorders with radiculopathy, lumbosacral region
CPT/HCPCS: 72148

== ENCOUNTER → 2025-08-21 07:46 | Outpatient (BNVA) | payer MEDICARE, OTHER, MEDICAID, SELFPAY | PROVIDERS: PCP Family Medicine; Visit Provider Orthopaedic Surgery | DX: M48.07 Spinal stenosis, lumbosacral region (principal); G89.29 Other chronic pain | CPT/HCPCS: 72110; 99203 ==